=== PATIENT | female | born 1980 ===

== ENCOUNTER 2016-10-19 09:59 | Emergency (ER) | payer OTHER, SELFPAY ==
[2016-10-19 10:05] VITALS: BMI 29.2
[2016-10-19 10:06] VITALS: TEMP 98.1
[2016-10-19 11:10] LABS: BASO % 0.4 % (0.0-2.0); EOS # 0.1 K/uL (0.0-0.7); EOS % 1.3 % (0.0-4.0); HEMATOCRIT 32.5 % (34.0-47.0); LYMPH # 1.4 K/uL (1.0-4.3); LYMPH % 20.9 % (20.0-40.0); MEAN CORPUSCULAR HEMOGLOBIN 29.9 pg (27.0-31.0); MEAN CORPUSCULAR HGB CONC 35.2 g/dL (33.0-37.0); MEAN PLATELET VOLUME 8.5 fl (7.2-11.7); MONO # 0.3 K/uL (0.0-0.8); MONO % 4.2 % (0.0-10.0); NEUT # 4.8 K/uL (1.8-7.0); NEUT % 73.2 % (50.0-75.0); NRBC % 0.1 % (0.0-0.0); RED CELL DISTRIBUTION WIDTH 13.8 % (11.5-14.5); WHITE BLOOD COUNT 6.6 K/uL (4.8-10.8)
[2016-10-19 11:11] LABS: RBC URINE 3 /hpf (0-3); URINE BACTERIA OCC (<OCC); URINE BILIRUBIN NEGATIVE (NEGATIVE); URINE BLOOD NEGATIVE (NEGATIVE); URINE COLOR YELLOW (YELLOW); URINE GLUCOSE (UA) NEG (Normal); URINE KETONE NEGATIVE (NEGATIVE); URINE LEUKOCYTE ESTERASE NEG Leu/uL (Negative); URINE PROTEIN NEGATIVE (NEGATIVE); URINE UROBILINOGEN 0.2-1.0 mg/dL (0.2-1.0); WBC URINE 1 /hpf (0-5)
[2016-10-19 11:23] LABS: ALB/GLOB RATIO 1.3 (1.0-2.1); ALKALINE PHOSPHATASE 64 U/L (38-126); ALT/SGPT 29 U/L (9-52); AST/SGOT 21 U/L (14-36); BILIRUBIN,TOTAL 0.5 mg/dl (0.2-1.3); BLOOD UREA NITROGEN 4 mg/dl (7-17); CALCIUM 9.1 mg/dL (8.4-10.2); CARBON DIOXIDE 21 mmol/L (22-30); CHLORIDE 107 mmol/L (98-107); GFR AFRICAN-AMERICAN > 60; GLUCOSE,RANDOM 90 mg/dL (65-105); POTASSIUM 3.4 MMOL/L (3.6-5.0); SODIUM 138 mmol/l (132-148); TOTAL PROTEIN 7.3 G/DL (6.3-8.2)
--- NOTE | 2016-10-19 11:36 | ED PDOC ---
HPI: Female Pain Time Seen by Provider: 10/19/16 10:26 Chief Complaint (Nursing): Abdominal Pain Chief Complaint (Provider): abdominal pain History Per: Patient History/Exam Limitations: no limitations Current Symptoms Are (Timing): Still Present Severity: Mild Pain Scale Rating Of: 3 Quality Of Discomfort: Cramping Associated Symptoms: Back Pain. denies: Fever, Chills, Nausea, Vomiting, Diarrhea, Loss Of Appetite, Chest Pain, Constipation, Urinary Symptoms Additional Complaint(s): 36yo F in ED for eval of left sided pelvic pain radiating to left side flank with vaginal blood clot noted this AM . admits she had (+) preg. test however she doesn't have regular menstrual and can't estimate how far along she may be. Pt denies : nausea vomiting fever chills dyrsuria hematuira. -1 , 4-vaginal delivery Past Medical History Reviewed: Historical Data, Nursing Documentation, Vital Signs Vital Signs: Last Vital Signs Temp 98.1 F 10/19/16 10:05 Pulse 100 H 10/19/16 10:05 Resp 19 10/19/16 10:05 BP 126/82 10/19/16 10:05 Pulse Ox 100 10/19/16 10:05 - Medical History PMH: No Chronic Diseases - Family History Family History: States: No Known Family Hx - Home Medications Home Medications: Ambulatory Orders Medication Instructions Recorded Ferrous Sulfate 1 tab PO DAILY #0 tab 04/02/15 Vitamins [ Multi 1 tab PO DAILY #0 tab 04/02/15 Natural] Sennosides A and B [Senokot Tab] 17.2 mg PO HS PRN #30 tab 04/02/15 oxyCODONE/Acetaminophen [Percocet 1 tab PO Q4 PRN #20 tab 04/02/15 5/325 mg Tab] - Allergies Allergies/Adverse Reactions: Allergies Allergy/AdvReac Type Severity Reaction Status Date / Time No Known Allergies Allergy Verified 10/19/16 10:24 Review of Systems ROS Statement: Except As Marked, All Systems Reviewed And Found Negative Gastrointestinal: Positive for: Abdominal Pain. Negative for: Nausea, Vomiting Genitourinary Female: Positive for: Vaginal Bleeding, Pelvic Pain Physical Exam - Reviewed Nursing Documentation Reviewed: Yes Vital Signs Reviewed: Yes - Physical Exam Appears: Positive for: Well, Non-toxic, No Acute Distress Head Exam: Positive for: ATRAUMATIC, NORMAL INSPECTION, NORMOCEPHALIC Skin: Positive for: Normal Color, Warm, DRY ENT: Positive for: Normal ENT Inspection Cardiovascular/Chest: Positive for: Regular Rate, Rhythm Respiratory: Positive for: CNT, Normal Breath Sounds Gastrointestinal/Abdominal: Positive for: Normal Exam, Bowel Sounds, Soft. Negative for: Tenderness Neurologic/Psych: Positive for: Alert, Oriented - Laboratory Results Result Diagrams: 10/19/16 10:20 10/19/16 10:20 Urine POC: Positive Urine dip results: Negative for: Leukocyte Esterase, Blood, Nitrate, Ketones, Glucose, Bilirubin, Protein - ECG O2 Sat by Pulse Oximetry: 100 - Progress ED Course And Treament: impression: miscarriage vs ectopic. pt will need US, labs . pain is under control at this time. Medical Decision Making Medical Decision Making: Pt is 17 weeks with healthy gestation. advised to have OBGYN f.u Disposition - Clinical Impression Clinical Impression: Abdominal pain during - Patient ED Disposition Is Patient to be Admitted: No Counseled Patient/Family Regarding: Studies Performed, Diagnosis, Need For Followup - Disposition [facility] Disposition: Routine/Home Disposition Time: 12:50 Condition: STABLE Instructions: Morning Sickness (ED), (ED) Print Language: NEPALESE
--- NOTE | 2016-10-19 12:46 | US ---
PROCEDURE: ultrasound HISTORY: left lower pelvic pain with vaginal bleeding COMPARISON: None available. TECHNIQUE: Standard protocol for this study/examination. FINDINGS: Variable presentation. Interior Placenta. No evidence of abruption or previa Gestational age derived from LMP Cannot be ascertained based in the absence of a reliable/ known LMP Gestational age derived from the following biometric parameters 17 weeks 2 days . Biparietal diameter 3.9 cm Head [id number] cm Abdominal circumference 11.3 cm Femur length 2.3 cm Estimated weight 180.5 g Calculated cardiac rate 144 beats per min. Closed cervix measuring 5.02 cm IMPRESSION: 17 weeks 2 days live intrauterine gestation. JANE March 27, 2017.
[2016-10-19 13:03] VITALS: BP 110/71; PULSE 78; RESP 18; O2SAT 99
== END 2016-10-19 13:10 | disposition home or self-care (01) ==
LOC: H.ER 09:59
DX: O21.9 Vomiting of pregnancy, unspecified (principal)

== ENCOUNTER 2017-03-11 13:47 | Inpatient (IN) | payer OTHER ==
[2017-03-22] MEDS: Lactated Ringer's 1,000 ML IV SCH ×3 (07:35→21:14)
[2017-03-22 07:49] VITALS: BMI 34.9
[2017-03-22] MEDS ORDERED: ceFAZolin IV 2 gm in Dextrose 2 GM/50 ML BAG IVPB ONE (07:53)
[2017-03-22 08:09] LABS: BASO % 0.5 % (0.0-2.0); EOS # 0.2 K/uL (0.0-0.7); EOS % 2.7 % (0.0-4.0); HEMATOCRIT 34.9 % (34.0-47.0); LYMPH # 2.1 K/uL (1.0-4.3); MEAN CELL VOLUME 83.8 fl (81.0-99.0); MEAN CORPUSCULAR HEMOGLOBIN 28.9 pg (27.0-31.0); MEAN CORPUSCULAR HGB CONC 34.5 g/dL (33.0-37.0); MONO # 0.5 K/uL (0.0-0.8); MONO % 5.9 % (0.0-10.0); NEUT % 63.9 % (50.0-75.0); RED CELL DISTRIBUTION WIDTH 14.4 % (11.5-14.5); WHITE BLOOD COUNT 7.9 K/uL (4.8-10.8)
[2017-03-22 08:31] VITALS: O2SAT 100
[2017-03-22] MEDS ORDERED: Morphine 1 mg/ml preservative-free Inj(Duramorph) ONE (08:43)
[2017-03-22] MEDS ORDERED: Oxytocin 30 UNITS in Sodium Chloride 0.9% 500 ML IV ONE ×2 (09:00→12:00)
[2017-03-22] MEDS ORDERED: Naloxone 0.4 mg/ml Inj (Adult) IVP PRN (09:44)
[2017-03-22] MEDS ORDERED: Morphine 1 mg/ml preservative-free Inj(Duramorph) IT ONE (09:44)
[2017-03-22] MEDS ORDERED: DiphenhydrAMINE 50 mg/ml Inj IVP PRN (09:51)
[2017-03-22] MEDS ORDERED: Cellulose Hemostat 2X3 Sheet ONE (10:56)
[2017-03-22] MEDS ORDERED: Oxycodone/Acetaminophen 5/325 mg Tab PO PRN ×2 (11:32)
--- NOTE | 2017-03-22 13:32 | OBADHP ---
Datetime: 03/22/2017 07:26 Admit Comment, IP Provider: 36 y/o F, , IUP@39.2 comes to the L_D for repeat . Patient denies any LOF/BV/CTX, positive FM. Patient denies any nausea, vomiting, Fever chills or SOB/chest pa in. PNC: Dr. Montana PNL: GBS neg, HIV neg, HepB neg, Rubella immune, RPR non reactive. PNI: No issues with this so far as per pt PMH: None PSH: ENGINEER SYSTEM ADMINISTRATOR: 3xNVD, 1xC-Section Allg: none Med: PNV SH: no alcohol, smoking or drug use FH: none VS: Stabe 122/88 FHR 140 PE: unremarkable A/P: 36 y/o F, , IUP@39.2 comes to the L_D for repeat . - Admite pt - Monitor VS and FHT - Initiate C/Section protocol Case discussed with Dr. Montana --- Gabino Brower, PGY-1 Agree with above resident H+P --Coby Pelvic Type - PN: Not Done Extremities - PN: Normal Abdomen - PN: Normal Back - PN: Normal Breast - PN: Not Done Lungs - PN: Normal Heart - PN: Normal Thyroid - PN: Normal Neurologic - PN: Normal HEENT - PN: Normal General - PN: Normal FHR - Baseline A Provider: 140 Comments, ACOG Physical Exam: GBS neg, HIV neg, HepB neg, Rubella immune, RPR non reactive. Vital Signs Provider: Reviewed IP Chief Complaint: Scheduled Section NICHD Variability Prov Fetus A: Moderate 6-25bpm NICHD Accel Fetus A IP Provider: 15X15 FHR Category Provider Fetus A: Category I NICHD Decel Fetus A IP Provider: None Genitourinary Exam: Not Done DTRs - PN: Normal EGA AdmitDate IP: 39.2 IP Adm Impression: Term, intrauterine IP Admit Plan: Admit to unit; Initiate Section protocol; Observation/Evaluation
--- NOTE | 2017-03-22 13:32 | OBDS ---
DELIVERY PERSONNEL Delivery Doctor: Roma Polo MD Scrub Nurse: Laney Iverson OBT Geologist: Celeste Perkins RN Anesthesiologist: Christina olson MD Resident: ren anthony MD MATERNAL INFORMATION Delivery Anesthesia: Spinal Medications in Delivery: pitocin Estimated Blood Loss (ml): 800 Maternal Complications: None RN Comments: Atraumatic repeat delivery of viable babyboy with Lusty Cry. No abnormalitei s noted Dr. Silva present to assess assigned 9/9 APGARs. Patient tolerated delivery well. B oth and patient recoverying well. Provider Comments: See Operative report for delivery information LABOR SUMMARY EDC: 03/27/2017 00:00 No. Babies in Womb: 1 Attempted: No Labor Anesthesia: Spinal LABOR INFORMATION Reason for Induction: Not Applicable Oxytocin: N/A Group B Beta Strep: Negative Antibiotics # of Doses: 1 Antibiotics Time of Last Dose: 954 Steroids Given: None Reason Steroids Not Administered: Not Applicable Other Reason Not Administered: Not required MEMBRANES Membranes Rupture Method: Artificial Rupture of Membranes: 03/22/2017 10:24 Length of Rupture (hrs): 0.03 Amniotic Fluid Color: Clear Amniotic Fluid Amount: Moderate Amniotic Fluid Odor: Normal STAGES OF LABOR Stage 3 hrs: 0 Stage 3 min: 1 CSECTION DELIVERY Primary Indication: Repeat Elective CSection Urgency: Elective CSection Incidence: Repeat CSection Incision: Lower Uterine Transverse Sterilization Procedure: Melvin BABY A INFORMATION Infant Delivery Date/Time: 03/22/2017 10:26 Method of Delivery: Born in Route : No : N/A Forceps: N/A Vacuum Extraction: N/A Shoulder Dystocia : No SHOULDER DYSTOCIA BABY A Infant Delivery Date/Time: 03/22/2017 10:26 PRESENTATION/POSITION BABY A Presentation: Cephalic Cephalic Presentation: Vertex Vertex Position: Left Occipital Anterior Breech Presentation: N/A PLACENTA INFORMATION BABY A Placenta Delivery Time : 03/22/2017 10:27 Placenta Method of Delivery: Manual Removal Placenta Status: Delivered SCORES BABY A Heart Rate 1 min: >100 bpm Resp Effort 1 min: Good Cry Reflex Irritability 1 min: Cough or Sneeze or Pulls Away Muscle Tone 1 min: Active Motion Color 1 min: Body [place], Extremities Blue Resuscitation Effort 1 min: N/A SCORE 1 MIN: 9 Heart Rate 5 min: >100 bpm Resp Effort 5 min: Good Cry Reflex Irritability 5 min: Cough or Sneeze or Pulls Away Muscle Tone 5 min: Active Motion Color 5 min: Body [place], Extremities Blue Resuscitation Effort 5 min: N/A SCORE 5 MIN: 9 INFANT INFORMATION BABY A Gestational Age at Delivery: 39.0 Gestational Status: Term Infant Outcome : Liveborn Infant Condition : Stable Infant Sex: Male IDENTIFICATION/MEDS BABY A ID Band Number: [id number] ID Band Location: Left Leg; Left Arm WEIGHT/LENGTH BABY A Birthweight (gms): 3680 Weight (lb): 8 Weight (oz): 2 Length Inches: 21.25 Length cms: 54.0 CORD INFORMATION BABY A No. Cord Vessels: 3 Nuchal Cord : Around Neck x1, Loose Cord Blood Taken: No Infant Suction: Mouth; Nose ASSESSMENT BABY A Infant Complications: None Physical Findings at Delivery: Within Normal Limits Infant Respirations: Appears Normal Ironing Machine Operator/ALS Called : No Infant Care By: Dr Silva Transferred To: Remains with Mother
[2017-03-23] MEDS: Lactated Ringer's 1,000 ML IV SCH (05:22)
[2017-03-23 07:51] LABS: HEMATOCRIT 29.7 % (34.0-47.0); MEAN CELL VOLUME 84.4 fl (81.0-99.0); MEAN CORPUSCULAR HEMOGLOBIN 29.2 pg (27.0-31.0); MEAN CORPUSCULAR HGB CONC 34.6 g/dL (33.0-37.0); RED CELL DISTRIBUTION WIDTH 14.5 % (11.5-14.5); WHITE BLOOD COUNT 9.1 K/uL (4.8-10.8)
[2017-03-23] MEDS ORDERED: Influenza Vaccine 18yr & older 0.5 ML/45 MCG SYR IM ONE (08:45)
--- NOTE | 2017-03-23 16:14 | OBPPN ---
Datetime: 03/23/2017 06:18 PP Pain Prov: Within normal limits PP Nausea Prov: Denies PP Flatus Prov: No PP BM Prov: No PP Breasts Prov: Normal PP Heart Prov: Normal PP Lungs Prov: Normal PP Abdomen/Uterus Prov: Normal PP Lochia Prov: Normal PP Vulva/Perineum Prov: Normal PP CVA Tenderness Prov: Not Done PP Extremities Prov: Normal PP C/S Incision Prov: Normal PP Progress Prov: Normal PP Impression Prov: Normal progression PP Plan Prov: Continue present management PP Progress Note Prov: S: pt seen and examined bedside this AM. and baby present by bedside. POD1, s/p repeat . No acute overnight events. Pt endorses pelvic pain-pt had not taken any medications this AM. Pt educated on her medication option and encouraged to ask for pain medication w hen needed. Pt has not yet ambulated, encouraged to start ambulating around the room. Breast and Alfred le feeding baby. Pt states that she would like circumcision for the baby. Tolerating liquid diet and lochia is similar to menses. Dressing removed. -/- gas, BM. Denies fever, chills, headache, chest robb n, dyspnea, palpitations, n/v/d/c and remains afebrile. O: VS stable GEN: NAD Cardio: S1S2 no M/G/R Resp: vesicular breathing b/l Abdomen: [place] intact. Tenderness to palpation in pelvic area, incision intact, no discharge, no erythema, no dehiscence. Fundus @ the umbilicus and firm. BS+ Neuro: AAO x 3 Ext: no edema noted, no calf tenderness Assessment/Plan: 36 YO delivered @ 39.2wks to a baby boy via NVD on 03/22/17. Doing well POD1. OOB with caution SCD's for DVT prophylaxis, ambulating D/c pickens this AM Will advance to regular diet Follow up pCBC Ibuprofen and Percocet 5/325mg 1-2 tablets po q6 for mod/sev pain Encourage and ambulation Senakot 17.2mg PO qHS Will continue PP management Senia Hu, PGY I The patient was seen with the resident and I agree with the note Vital Signs Provider PP: Reviewed; Within Normal Limits
--- NOTE | 2017-03-24 10:15 | OBPPN ---
Datetime: 03/24/2017 07:13 PP Pain Prov: Within normal limits PP Nausea Prov: Denies PP Flatus Prov: Yes PP BM Prov: No PP Breasts Prov: Normal PP Heart Prov: Normal PP Lungs Prov: Normal PP Abdomen/Uterus Prov: Normal PP Lochia Prov: Normal PP Vulva/Perineum Prov: Normal PP CVA Tenderness Prov: Not Done PP Extremities Prov: Normal PP C/S Incision Prov: Normal PP Progress Prov: Normal PP Impression Prov: Normal progression PP Plan Prov: Continue present management PP Progress Note Prov: S: pt seen and examined bedside this AM. POD2, s/p repeat . No acute overnight events. Pt endorses minimal pelvic pain. Pt is ambulating around the room, and states that she walked in the hallway last night. Breast and Bottle feeding baby. Circumcision was done yesterda y. Tolerating diet and lochia is similar to menses. +/- gas, BM. Denies fever, chills, headache, ches t pain, dyspnea, palpitations, n/v/d/c and remains afebrile. O: VS stable GEN: NAD Cardio: S1S2 no M/G/R Resp: vesicular breathing b/l Abdomen: [place] intact. Mild tenderness to palpation in pelvic area, incision intact, no discharg e, no erythema, no dehiscence. Fundus @ the umbilicus and firm. BS+ Neuro: AAO x 3 Ext: mild non-pitting edema noted up to the knees, no calf tenderness Assessment/Plan: 36 YO delivered @ 39.2wks to a baby boy via NVD on 03/22/17. Doing well POD2. OOB with caution SCD's for DVT prophylaxis, ambulating Ibuprofen and Percocet 5/325mg 1-2 tablets po q6 for mod/sev pain Encourage and ambulation Senakot 17.2mg PO qHS Will continue PP management Senia Hu, PGY I obh addendum: pt seen _ examined by me. no c/o. agree w/ above assessment and plan. Vital Signs Provider PP: Reviewed; Within Normal Limits
[2017-03-25 08:52] VITALS: TEMP 98.5
--- NOTE | 2017-03-25 11:15 | OBPPN ---
Datetime: 03/25/2017 07:06 PP Pain Prov: Within normal limits PP Nausea Prov: Denies PP Flatus Prov: Yes PP BM Prov: Yes PP Breasts Prov: Normal PP Heart Prov: Normal PP Lungs Prov: Normal PP Abdomen/Uterus Prov: Normal PP Lochia Prov: Normal PP Vulva/Perineum Prov: Normal PP CVA Tenderness Prov: Not Done PP Extremities Prov: Normal PP C/S Incision Prov: Normal PP Progress Prov: Normal PP Impression Prov: Normal progression PP Plan Prov: Continue present management; Discharge PP Progress Note Prov: S: pt seen and examined bedside this AM. POD3, s/p repeat . No acute overnight events. Pt endorses pelvic pain but mild. Pt is ambulating without any difficulties. Breas t and Bottle feeding baby. Baby is doing well per mother, had bili drawn today, pending. Tolerating r egular diet and lochia is similar to menses. +/+ gas, BM. Denies fever, chills, headache, chest pain, dyspnea, palpitations, n/v/d/c and remains afebrile. O: VS stable GEN: NAD Cardio: S1S2 no M/G/R Resp: vesicular breathing b/l Abdomen: [place] intact. Tenderness to palpation in pelvic area, incision intact, no discharge, no erythema, no dehiscence. Fundus below the umbilicus and firm. BS+ Neuro: AAO x 3 Ext: no edema noted, no calf tenderness Assessment/Plan: 36 YO delivered @ 39.2wks to a baby boy via NVD on 03/22/17. Doing well POD3. OOB with caution SCD's for DVT prophylaxis, ambulating Ibuprofen and Percocet 5/325mg 1-2 tablets po q6 for mod/sev pain Encourage and ambulation Senakot 17.2mg PO qHS Will d/c pt with WC and PP care Please see MD for baby in 3-4 days Senia Hu, PGY I Addendum by Dr. Freed: Patient evaluated independently and I agree with the above. Patient to be d ischarged, discharge instructions reviewed Vital Signs Provider PP: Reviewed; Within Normal Limits
--- NOTE | 2017-03-25 11:15 | OBDCSUM ---
Datetime: 03/25/2017 07:09 Discharged to, Provider: Home Follow up at, Provider: [facility] Disch Instr Activity: Normal activity; May be up to bathroom; May be up for meals; May Shower Disch Instr Diet: Regular Discharge Instructions, Provider: Routine instructions given Discharge Diagnosis, Provider: Term Delivered Discharge Time: 03/25/2017 01:00 Follow up in weeks, Provider: 1 week, 6 kws Disch Referrals: None Contraception discussed, Prov: Yes Disch Activity Restrictions: No exercising; No lifting; Minimize stair-climbing; No sexual activity; Nothing in vagina - [place], tampons, douche Discharge Comment, Provider: 36 YO delivered @ 39.2wks to a baby boy via NVD on 03/22/17. Uncom plicated course. Lochia is minimal, pt is ambulating, tolerating PO diet, and remains afeb rile. 1. Encourage 2. PNV 1 tab po q/day 3. Percocet and Ibuprofen for pain. Senokot for constipation. 4. Ambulatory with caution, nothing per vagina, no heavy lifting, avoid stairs, if excessive bleed ing or fever without relief from Tylenol go to ED 5. F/U in [facility] for WC on 04/07/17 @ 1:45 PP 05/03/17 @ 1:15 Baby in 3-4 days Senia Hu, PGY I Contraception after Delivery: Foam/Condoms; Undecided
[2017-03-25 15:11] VITALS: BP 114/73; PULSE 72; RESP 20
--- NOTE | 2017-03-28 17:24 | OP ---
PROCEDURE DATE: 03/22/2017 PREOPERATIVE DIAGNOSES: Term with previous section, desires permanent sterilization. POSTOPERATIVE DIAGNOSES: Term with previous section, desires permanent sterilization. PROCEDURE: Repeat low transverse section and bilateral tubal ligation. SURGEON: Donnell Polo MD COURT INTERPRETER: Palomo Tenorio MD ESTIMATED BLOOD LOSS: 850 mL URINE OUTPUT: 300 mL, clear at end of procedure. IV FLUID INTAKE: 2000 mL PATHOLOGY: Segment of right and left fallopian tubes. FINDINGS: A live male, Apgars of 9 and 9, delivered in vertex presentation, amniotic fluid clear. Nuchal cord x1, easily reduced. DESCRIPTION OF PROCEDURE: The patient was taken to the operating room and given spinal anesthesia without difficulty. She was then prepped and draped in normal sterile fashion in the dorsal supine position with a leftward tilt. A Pfannenstiel skin incision was then made with a scalpel through the previous Pfannenstiel scar and carried through the underlying fascia with the Bovie. The incision was incised in the midline. This incision was extended laterally using the Bovie. The inferior aspect of the fascial incision was then grasped with Mohinder clamps, elevated, and the underlying rectus muscles were dissected off sharply with the Bovie, then bluntly. Attention was then turned to the superior aspect of the fascial incision, which in a similar fashion, was dissected off sharply with the Bovie, then bluntly. The rectus muscles were meticulously in the midline using the scalpel. The peritoneum was identified and entered with the Metzenbaum scissors. This incision was extended laterally, superiorly, inferiorly paying close attention to the bladder. The bladder blade was inserted. The vesicouterine peritoneum was identified, tented up, and entered with Metzenbaum scissors. This incision was extended laterally and the bladder flap was created gently. The bladder blade was reinserted and the lower uterine segment was then incised in the transverse fashion with the scalpel. This incision was then extended cephalocaudally bluntly, the membranes were then ruptured, infant was delivered atraumatically. The cord was doubly clamped and cut and the was handed off to the awaiting claims adjudicator. Cord blood was then taken. The placenta was extracted spontaneously and intact. The uterus was exteriorized and cleared off all clots and debris. The uterine incision was then closed with 1 Vicryl in a running locked fashion and a second layer was then placed for imbrication. Good hemostasis was then noted. At this time, attention was then turned to the tube and a bilateral tubal ligation was then performed, first on the left with a Elsberry procedure except that the left fallopian tube was handed off of the field for pathology and the Bovie was used to obtain good hemostasis in the cut portion of the tube. This procedure was performed with a 2-0 chromic suture. Attention was then turned to the right fallopian tube and a fimbriectomy was performed. This was then also handed off of the field for pathology and for good hemostasis of the cut portion of the tube. The copious irrigation was then performed. The uterus was returned to the abdomen and cleared off all clots and debris. Inspection of the sites of the tubal ligation and the uterine incision again revealed good hemostasis. The peritoneum along with the muscle was then closed with a 2-0 Vicryl suture in a running fashion. The fascia was then closed with 0 Vicryl in a running fashion bilaterally to the midline. The Bovie was used to obtain good hemostasis on the subcutaneous fat and this layer was closed with 4 interrupted stitches using a 3-0 plain suture and the skin was closed with joseluis. The patient tolerated the procedure well. Sponge, lap and needle counts were correct x4. Ancef 2 g were given preoperatively. The patient was taken to the recovery room in stable condition. There was no injury to the bladder, bowel, ureter or baby. Due to the nature of this case, an senior executive assistant was requested. My senior executive assistant, Dr. Palomo Tenorio remained for the entire procedure from the initial incision to the patient's transfer to the recovery room. He provided good exposure to ensure good hemostasis. He assisted with retraction and entry into the abdominal cavity and closure as well. He also assisted with performance of the bilateral tubal ligation. This procedure could not have been performed without his assistance. Donnell Polo MD
== END 2017-03-25 11:06 | disposition home or self-care (01) | DRG 371 ==
LOC: H.L&D 03-22 07:46 → H.OB/GYN 03-22 15:30
PROVIDERS: ADMIT Obstetrics & Gynecology; ATTEND Obstetrics & Gynecology
PROC: 10D00Z1 Extraction of Products of Conception, Low, Open Approach (ICD-10-PCS; principal; 2017-03-22)
PROC: 0UB70ZZ Excision of Bilateral Fallopian Tubes, Open Approach (ICD-10-PCS; 2017-03-22)
PROC: 4A1HXCZ Monitoring of Products of Conception, Cardiac Rate, External Approach (ICD-10-PCS; 2017-03-22)
DX: O34.211 Maternal care for low transverse scar from previous cesarean delivery (principal); N85.8 Other specified noninflammatory disorders of uterus; Z37.0 Single live birth; O69.81X0 Labor and delivery complicated by cord around neck, without compression, not applicable or unspecified; Z3A.39 39 weeks gestation of pregnancy; Z30.2 Encounter for sterilization